=== PATIENT | female | born 1960 | race Caucasian/White ===

== ENCOUNTER 2020-06-13 15:32 | Emergency (ER) | payer OTHER ==
[~2020-06-13] VITALS: Ht 154.9 cm; Wt 77.1 kg
--- NOTE | 2020-06-13 15:37 | NUR ---
[email or web address]
[2020-06-13] MEDS ORDERED: OXYMETAZOLINE NASAL SPRAY 0.05%,30ML NAS ONE (16:00)
--- NOTE | 2020-06-13 16:42 | NUR ---
YOUTUBER: PT AMBULATORY TO ROOM WITH STEADY GAIT FROM LOBBY WITH FUNCTIONAL MANAGER, ACCOMPANIED BY FAMILY. NOSE CLAMP IN PLACE FROM TRIAGE
[2020-06-13] MEDS ORDERED: OXYMETAZOLINE NASAL SPRAY 0.05%,30ML ONE (16:46)
--- NOTE | 2020-06-13 16:56 | NUR ---
Pt states she had severe allergies with sneezing and runny nose approx 1 week ago. Pt reports increasing R nostril nose bleeds since then. Denies hx of epistaxis. No blood thinners. Pt states she is anxious and has been "boarderline hypertensive for 3 years but never followed up."
--- NOTE | 2020-06-13 17:49 | NUR ---
MD Liao at bedside, he is aware of VS.
[2020-06-13 19:03] VITALS: BP 155/90
== END 2020-06-13 19:05 | disposition home or self-care (01) ==
LOC: ED 18:58
DX: R04.0 Epistaxis (principal); R00.0 Tachycardia, unspecified; I10 Essential (primary) hypertension
CPT/HCPCS: 93005; 99283